=== PATIENT | female | born 1995 | race Caucasian/White ===

== ENCOUNTER 2020-01-25 17:44 | Emergency (ER) | payer OTHER, SELFPAY ==
--- NOTE | 2020-01-25 18:13 | ED.GENADULT ---
HPI - General Adult General Chief complaint: Ear Stated complaint: right ear pain Time Seen by Provider: 01/25/20 18:27 Source: patient Mode of arrival: ambulatory Limitations: no limitations History of Present Illness HPI narrative: 24-year-old female patient presents to the [facility] with complaints of right ear pain that started yesterday. Patient states she has been playing in the yard with the kids with the house a lot lately. Patient denies any fevers, runny nose, sore throat, chest pain or shortness of breath. Patient states it hurts when her ear is manipulated. Related Data Home Medications Medication Instructions Recorded Confirmed famotidine 01/25/20 sertraline mg 01/25/20 sumatriptan succinate mg PO 01/25/20 Allergies Allergy/AdvReac Type Severity Reaction Status Date / Time albuterol Allergy Mild Rash Verified 10/15/18 12:31 Review of Systems Review of Systems: Narrative: CONSTITUTIONAL: Denies fever, chills, or sweats. EYES: Denies visual changes, redness, or discharge. ENT: Denies rhinorrhea, congestion, sore throat, positive right otalgia. CARDIOVASCULAR: Denies chest pain, palpitations, or edema. RESPIRATORY: Denies cough or dyspnea. GASTROINTESTINAL: Denies abdominal pain, nausea, vomiting, or diarrhea. GENITOURINARY: Denies dysuria or hematuria. SKIN: Denies rash or itching. MUSCULOSKELETAL: Denies back pain, joint pain, or myalgia. NEUROLOGIC: Denies headache, numbness, or weakness. PSYCHIATRIC: Denies anxiety or depression. [facility] Social History Social History Smoking status: Never smoker Second hand tobacco smoke exposure: No Alcohol intake: never Comments At the time of my signature I agree with nursing past medical history, surgical, social, and family history. There is no relevant family history pertinent to the presenting complaint. Exam Narrative: Exam Narrative: GENERAL: Well-appearing, well-nourished, and in no acute distress. HEAD: Normocephalic, atraumatic. EYES: PERRLA and EOMI. ENT: Nares clear, no rhinorrhea or epistaxis. Mucous membranes moist. Patient has pain with manipulation of the right outer ear. Patient does have swelling and inflammation noted to the right ear canal. Unable to visualize the tympanic membrane due to the swelling. The left ear with no erythema and no foreign bodies to the canal. Posterior pharynx with no erythema, tonsillectomy, exudates or lesions present. NECK: Supple. No lymphadenopathy CHEST: Clear to auscultation. No respiratory distress. HEART: Regular rate and rhythm. No murmur heard. Normal peripheral pulses. ABDOMEN: Soft, nontender, nondistended, normal active bowel sounds. EXTREMITIES: Normal range of motion. No edema. SKIN: Warm, dry, no rash. NEURO: No focal deficits. Alert and oriented x3. Course Vital Signs Vital signs: Vital Signs Temperature 37.8 C H 01/25/20 18:14 Pulse Rate 86 01/25/20 18:14 Respiratory Rate 16 01/25/20 18:14 Blood Pressure 110/66 01/25/20 18:14 Pulse Oximetry 99 01/25/20 18:14 Temperature 37.8 C H 01/25/20 18:14 Pulse Rate 86 01/25/20 18:14 Respiratory Rate 16 01/25/20 18:14 Blood Pressure 110/66 01/25/20 18:14 Pulse Oximetry 99 01/25/20 18:14 Vital signs reviewed. Medical Decision Making Differential Diagnosis Differential Diagnosis: Differential diagnosis: Otitis media, otitis externa, perforated TM, infection of the outer ear, foreign body or cerumen impaction, ruptured TM, acute mastoiditis, ligament otitis externa, dehydration, pneumonia, sepsis, dental or intraoral infection, TMJ dysfunction Discussed with patient it does appear that she has an infection to her ear canal in the right ear. Discussed with her we will discharge her home with some eardrops is very important that she does not go swimming or play with the hose at this time while this is healing. Patient verbalized understanding denies any
[2020-01-25 18:14] VITALS: BP 110/66; PULSE 86; RESP 16; TEMP 37.8; O2SAT 99
== END 2020-01-25 18:48 | disposition home or self-care (01) ==
PROVIDERS: Emergency Provider Nurse Practitioner Family; PCP Emergency Medicine
DX: H60.501 Unspecified acute noninfective otitis externa, right ear (principal)
CPT/HCPCS: 99213; G0463

== ENCOUNTER 2020-01-27 06:47 | Emergency (ER) | payer OTHER, SELFPAY ==
[2020-01-27 06:55] VITALS: BP 124/88; PULSE 92; RESP 14; TEMP 36.4; O2SAT 99
--- NOTE | 2020-01-27 07:13 | ED.EAR ---
HPI - Ear Problem General Chief complaint: Ear Stated complaint: RIGHT EARACHE Time Seen by Provider: 01/27/20 07:02 Source: patient Mode of arrival: ambulatory Limitations: no limitations History of Present Illness HPI Narrative: This patient is a 24 year old female who presents for evaluation right ear infection. PAtient was diagnosed with right otitis externa 2 days ago. She was prescribed ofloxacin ear drops . She has come to ER for evaluation because she has right facial swelling and it is not resolving. She also reports she does not think the ear drops are getting into her ear. She denies fever, chills , nausea, vomiting or dizziness. MD Complaint: ear pain Related Data Home Medications Medication Instructions Recorded Confirmed famotidine 01/25/20 sertraline mg 01/25/20 sumatriptan succinate mg PO 01/25/20 Allergies Allergy/AdvReac Type Severity Reaction Status Date / Time albuterol Allergy Mild Rash Verified 01/27/20 06:48 Review of Systems Review of Systems: All systems reviewed & are unremarkable except as noted in HPI and below PMFSH Past Medical History Medical History (Updated 01/27/20 @ 07:19 by Colleen Hutton MD) GERD (gastroesophageal reflux disease) Surgical History Surgical History (Updated 01/27/20 @ 07:16 by Colleen Hutton MD) Hx of tonsillectomy Social History Social History Smoking status: Never smoker Second hand tobacco smoke exposure: No Alcohol intake: never Exam Const: General: no acute distress and alert Orientation/consciousness: patient oriented x3 HENMT: Head: normocephalic and atraumatic Ears: Abnormal EAC present edema (unable to see due to severe swelling closing canal,) on the right, external ear abnormal auricular tenderness and pain with movement of external ear and other (mild right preauricula swelling, no mastoid swelling or tenderness) Mouth: Yes lip normal Eyes: EOM: EOMs intact bilaterally Resp: Effort & Inspection: normal respiratory effort Neuro: General: patient oriented x3 and moves all extremities Psych: Mental Status: mental status grossly normal Course Reevaluation(s) Reevaluation #1: I Discussed with patient that we will add oral cipro for her otitis externa given severity . Date: 01/27/20 Time: 07:18 Vital Signs Vital signs: Vital Signs Temperature 97.6 F 01/27/20 06:55 Pulse Rate 92 01/27/20 06:55 Respiratory Rate 14 01/27/20 06:55 Blood Pressure 124/88 01/27/20 06:55 Pulse Oximetry 99 01/27/20 06:55 Temperature 97.6 F 01/27/20 06:55 Pulse Rate 92 01/27/20 06:55 Respiratory Rate 14 01/27/20 06:55 Blood Pressure 124/88 01/27/20 06:55 Pulse Oximetry 99 01/27/20 06:55 Medical Decision Making Vital Signs Vital Signs: Vital Signs Temperature 97.6 F 01/27/20 06:55 Pulse Rate 92 01/27/20 06:55 Respiratory Rate 14 01/27/20 06:55 Blood Pressure 124/88 01/27/20 06:55 Pulse Oximetry 99 01/27/20 06:55 Temperature 97.6 F 01/27/20 06:55 Pulse Rate 92 01/27/20 06:55 Respiratory Rate 14 01/27/20 06:55 Blood Pressure 124/88 01/27/20 06:55 Pulse Oximetry 99 01/27/20 06:55 Discharge Plan Discharge Clinical Impression: Otitis externa Qualifiers: Otitis externa type: unspecified type Chronicity: acute Laterality: right Qualified Code(s): H60.501 - Unspecified acute noninfective otitis externa, right ear Patient Disposition: Home, Self-Care Condition: Stable Instructions: Antibiotic Form, Ciprofloxacin (Into the middle ear), Otitis Externa (ED) Additional Instructions: Follow up with your ear nose and throat physician if symptoms do not improve. Prescriptions: New ciprofloxacin HCl [Cipro] 500 mg tablet 500 mg PO Q12H Qty: 14 RF: 0 Ciprodex 0.3-0.1 % drops,suspension 4 drop EACH EAR Q12H 7 Days RF: 0 No Action famotidine 40 mg tablet RF
[2020-01-27] MEDS: KETOROLAC (*BKC) 60 MG/2 ML VIAL IM (07:22)
[2020-01-27] MEDS: CIPROFLOXACIN 500 MG TAB PO (07:22)
== END 2020-01-27 07:47 | disposition home or self-care (01) ==
LOC: ANHED 07:42
PROVIDERS: Emergency Provider General Practice; PCP Emergency Medicine
DX: H60.501 Unspecified acute noninfective otitis externa, right ear (principal); K21.9 Gastro-esophageal reflux disease without esophagitis
CPT/HCPCS: 96372; 99283; A9270; J1885

== ENCOUNTER 2021-11-08 13:19 | Outpatient (CLI) | payer OTHER, SELFPAY ==
[2021-11-08 14:02] LABS: Hematocrit 44.6 % (37.0-47.0); Mean Corpuscular HGB Conc 31.4 g/dl (32-36); Mean Corpuscular Volume 95.7 fl (80-100); Mean Platelet Volume 9.9 fl (7.4-10.4); Platelet Count Result 235 k/mm3 (150-375); Red Blood Count 4.66 M/mm3 (4.2-5.4); Red Cell Distribution Width 13.1 % (11.5-14.5)
[2021-11-08 14:16] LABS: Alanine Aminotransferase 15 U/L (6-35); Alkaline Phosphatase 29 U/L (38-126); Anion Gap 7 mmol/L (8-16); Aspartate Amino Transferase 22 U/L (14-36); Bilirubin,Total < 0.1 mg/dL (0.2-1.3); Blood Urea Nitrogen 18 mg/dL (7-17); Calcium 8.7 mg/dL (8.4-10.2); Carbon Dioxide 26 mmol/L (22-30); Chloride 105 mmol/L (98-107); Estimated Glomerular Filt Rate > 60; Glucose 95 mg/dL (65-110); Potassium 4.4 mmol/L (3.4-5.0); Sodium 138 mmol/L (137-145)
[2021-11-08 14:33] LABS: Iron 61 ug/dL (37-170)
[2021-11-08 14:43] LABS: Percent Iron Saturation 18 % (20-50)
[2021-11-08 14:51] LABS: Free T4 Free Thyroxine 0.93 ng/mL (0.78-2.19)
== END 2021-11-08 13:20 | disposition home or self-care (01) ==
LOC: ANHLAB 13:22
PROVIDERS: PCP Nurse Practitioner; Visit Provider Nurse Practitioner
DX: R53.83 Other fatigue (principal)
CPT/HCPCS: 36415; 80053; 82607; 83540; 83550; 84439; 84443; 85027

== ENCOUNTER 2022-05-02 13:00 | Outpatient (CLI) | payer OTHER, SELFPAY | END 2022-05-02 13:01 | disposition home or self-care (01) | LOC: ANHAUDIO 13:02 | PROVIDERS: PCP Nurse Practitioner; Visit Provider Otolaryngology | DX: H69.83 Other specified disorders of Eustachian tube, bilateral (principal); H90.0 Conductive hearing loss, bilateral | CPT/HCPCS: 92557; 92567 ==

== ENCOUNTER 2022-05-11 17:53 | Emergency (ER) | payer OTHER, SELFPAY ==
[2022-05-11 18:00] VITALS: BP 130/66; PULSE 86; RESP 16; TEMP 36.8; O2SAT 100
[2022-05-11 18:34] VITALS: BP 122/67; PULSE 73
--- NOTE | 2022-05-11 18:34 | ED.NAVMDI ---
HPI - Nausea/Vomiting/Diarrhea General Chief complaint: Nausea/Vomiting/Diarrhea Stated complaint: 5weeks , n/v Time Seen by Provider: 05/11/22 18:06 History of Present Illness HPI Narrative: 27-year-old female who is a currently 5 weeks presents to the emergency room for evaluation of nausea vomiting for 5 days. Patient's PIPE CAULKER is Dr. Sprague, and was told to come here for hydration. Patient denies any abdominal pain, back pain, fevers, diarrhea or constipation. Patient denies any vaginal bleeding. Patient states that she takes Pepcid regularly. Patient states her PIPE CAULKER called in a prescription for Reglan. Related Data Home Medications Medication Instructions Recorded Confirmed famotidine 40 mg tablet 01/25/20 03/13/22 Allergies Allergy/AdvReac Type Severity Reaction Status Date / Time albuterol Allergy Mild Rash Verified 03/13/22 14:27 Review of Systems Review of Systems: CONSTITUTIONAL: Denies fever, chills, or sweats. EYES: Denies visual changes, redness, or discharge. ENT: Denies rhinorrhea, congestion, sore throat, or otalgia. CARDIOVASCULAR: Denies chest pain, palpitations, or edema. RESPIRATORY: Denies cough or dyspnea. GASTROINTESTINAL: Reports nausea and vomiting GENITOURINARY: Denies dysuria or hematuria. SKIN: Denies rash or itching. MUSCULOSKELETAL: Denies back pain, joint pain, or myalgia. NEUROLOGIC: Denies headache, numbness, dizziness, or weakness. PSYCHIATRIC: Denies anxiety or depression. [facility] Past Medical History Medical History Acute suppurative otitis media of right ear with spontaneous rupture of tympanic membrane Crepitus of joint of left knee Depression with anxiety Encounter for screening examination for infectious disease Generalized anxiety disorder GERD (gastroesophageal reflux disease) Hearing loss, right Irregular menses Major depressive disorder, single episode, unspecified Nummular eczema Surgical History Surgical History History of myringotomy Hx of tonsillectomy Social History Social History Smoking status: Never smoker Second hand tobacco smoke exposure: Yes Alcohol intake: never Substance use: current Substance use type: marijuana Additional occupation/education comments: stay at home mother Gender identity (if verbalized by the patient): Female Exam Narrative: GENERAL: Well-appearing, well-nourished, no physical limitations, and in no acute distress. HEAD: Normocephalic, atraumatic. EYES: Conjunctivae normal, PERRLA and EOMI. ENT: External nose normal, Nares clear, no rhinorrhea or epistaxis. Mucous membranes dry. CHEST: Clear to auscultation. No respiratory distress. No wheezes rales or rhonchi. HEART: Regular rate and rhythm. No murmur heard. Normal peripheral pulses. ABDOMEN: Soft, nontender, nondistended, normal active bowel sounds. EXTREMITIES: Normal range of motion. No edema. No clubbing or cyanosis SKIN: Warm, dry, no rash. No noted wounds NEURO: No focal deficits. Alert and oriented x3. MAEW. CN's II-XI intact bilaterally, normal gait PSYCH: Cooperative. Normal mood and affect. Course Vital Signs Vital signs: Vital Signs Temperature 36.8 C 05/11/22 18:00 Pulse Rate 86 05/11/22 18:00 Respiratory Rate 16 05/11/22 18:00 Blood Pressure 130/66 05/11/22 18:00 Pulse Oximetry 100 05/11/22 18:00 Oxygen Delivery Room Air 05/11/22 18:00 Temperature 36.8 C 05/11/22 18:00 Pulse Rate 82 05/11/22 18:35 Respiratory Rate 16 05/11/22 18:00 Blood Pressure 124/86 05/11/22 18:35 Pulse Oximetry 100 05/11/22 18:00 Oxygen Delivery Room Air 05/11/22 18:00 MDM - Nausea/Vomiting/Diarrhea Lab Data Result diagrams: 05/11/22 18:47 05/11/22 18:47 Labs: Lab Results 05/11/22 05/11/22 1
[2022-05-11 18:35] VITALS: BP 116/87; BP 124/86; PULSE 67; PULSE 82
[2022-05-11] MEDS: ONDANSETRON INJ 4 MG/2 ML VIAL IV PUSH (18:35)
[2022-05-11] MEDS: SODIUM CHLORIDE 0.9% IV 1,000 ML 999 ML IV CONT (18:35)
[2022-05-11 18:57] LABS: Basophils Percent Auto 0.3 % (0.2-1.2); Eosinophils Percent Auto 0.2 % (0-4.4); Hematocrit 44.1 % (37.0-47.0); Immature Granulocyte Absolute 0.07 K/mm3 (0.00-0.031); Immature Granulocyte Percent A 0.5 % (0-0.5); Lymphocytes Absolute Auto 1.89 K/mm3 (0.9-3.2); Lymphocytes Percent Auto 13.1 % (18.3-44.2); Mean Corpuscular Hemoglobin 30.6 pg (26-34); Mean Platelet Volume 9.7 fl (7.4-10.4); Monocytes Absolute Auto 0.4 K/mm3 (0.1-0.6); Neutrophils Percent Auto 82.9 % (45.5-73.1); Platelet Count Result 290 k/mm3 (150-375); Red Cell Distribution Width 12.2 % (11.5-14.5); White Blood Count 14.5 K/mm3 (4.5-10.0)
[2022-05-11 19:03] LABS: Appearance Urine Clear (Clear); Bilirubin Urine 2+ (Negative); Blood Urine Trace-intact (Negative); Color Urine Yellow (Yellow); Glucose Urine UA Negative (Negative); Ketones Urine 4+ mg/dL (Negative); Leukocyte Esterase Ur 1+ LEU/UL (Negative); Nitrate Urine Negative (Negative); Protein Urine 2+ mg/dL (Negative); pH Urine 8.5 (5.0-9.0)
[2022-05-11 19:05] LABS: Alanine Aminotransferase 23 U/L (6-35); Albumin Level 5.2 g/dL (3.5-5.1); Alkaline Phosphatase 40 U/L (38-126); Anion Gap 14 mmol/L (8-16); Aspartate Amino Transferase 26 U/L (14-36); Bilirubin,Total 0.8 mg/dL (0.2-1.3); Blood Urea Nitrogen 13 mg/dL (7-17); Calcium 10.1 mg/dL (8.4-10.2); Carbon Dioxide 22 mmol/L (22-30); Chloride 104 mmol/L (98-107); Estimated CRCL calculation 144 ml/min; Estimated Glomerular Filt Rate > 60; Glucose 112 mg/dL (65-110); Lipase 47 U/L (23-300); Potassium 3.3 mmol/L (3.4-5.0); Sodium 140 mmol/L (137-145)
[2022-05-11 19:13] LABS: Mucus Urine Heavy /lpf; Squamous Epithelial Cell Urine Many /hpf (Few)
[2022-05-11 19:15] LABS: Add Urine Microscopic? YES
[2022-05-11 20:08] VITALS: BP 132/83; PULSE 76; RESP 16; O2SAT 100
== END 2022-05-11 19:58 | disposition home or self-care (01) ==
PROVIDERS: Emergency Medicine; Emergency Provider Nurse Practitioner Family; PCP Advanced Practice Midwife
DX: O26.891 Other specified pregnancy related conditions, first trimester (principal); E86.0 Dehydration; O21.8 Other vomiting complicating pregnancy; Z3A.01 Less than 8 weeks gestation of pregnancy
CPT/HCPCS: 36415; 80053; 81001; 83690; 85025; 96361; 96374; 99284; J2405; J7030

== ENCOUNTER 2022-05-13 12:33 | Emergency (ER) | payer OTHER, SELFPAY ==
[2022-05-13 13:29] VITALS: BP 146/87; PULSE 86; RESP 14; TEMP 36.6; O2SAT 100
== END 2022-05-13 14:55 | disposition left against medical advice (07) ==
PROVIDERS: Emergency Provider Emergency Medicine; PCP Advanced Practice Midwife
DX: R11.2 Nausea with vomiting, unspecified (principal)
CPT/HCPCS: 99199

== ENCOUNTER 2022-11-10 11:40 | Emergency (ER) | payer OTHER, SELFPAY ==
[2022-11-10 11:41] VITALS: BP 123/77; PULSE 87; RESP 16; TEMP 36.4; O2SAT 100
[2022-11-10] MEDS: SODIUM CHLORIDE 0.9% IV 1,000 ML 999 ML IV CONT ×2 (12:10→13:25)
[2022-11-10] MEDS: ONDANSETRON INJ 4 MG/2 ML VIAL IV PUSH (12:10)
--- NOTE | 2022-11-10 12:17 | PC.NURSE ---
Pt did try to urinate, said not able to urinate at this time.
[2022-11-10 12:18] LABS: Basophils Absolute Auto 0.1 K/mm3 (0.0-0.1); Basophils Percent Auto 0.5 % (0.2-1.2); Eosinophils Absolute Auto 0.1 K/mm3 (0-0.3); Eosinophils Percent Auto 0.5 % (0-4.4); Hematocrit 42.9 % (37.0-47.0); Hemoglobin 14.6 g/dL (12.0-15.0); Immature Granulocyte Absolute 0.05 K/mm3 (0.00-0.031); Immature Granulocyte Percent A 0.4 % (0-0.5); Lymphocytes Absolute Auto 2.88 K/mm3 (0.9-3.2); Lymphocytes Percent Auto 21.6 % (18.3-44.2); Mean Corpuscular Volume 88.1 fl (80-100); Mean Platelet Volume 9.9 fl (7.4-10.4); Monocytes Absolute Auto 0.7 K/mm3 (0.1-0.6); Monocytes Percent Auto 5.4 % (2.6-8.5); Neutrophils Absolute Auto 9.5 K/mm3 (1.3-6.7); Neutrophils Percent Auto 71.6 % (45.5-73.1); Platelet Count Result 275 k/mm3 (150-375); Red Blood Count 4.87 M/mm3 (4.2-5.4); Red Cell Distribution Width 13.1 % (11.5-14.5); White Blood Count 13.3 K/mm3 (4.5-10.0)
--- NOTE | 2022-11-10 12:26 | ED.GENADULT ---
HPI - General Adult General Chief complaint: Nausea/Vomiting/Diarrhea Stated complaint: n/v during - 8 weeks Time Seen by Provider: 11/10/22 11:56 History of Present Illness HPI narrative: 27-year-old female that is approximately 8 weeks presenting to the emergency department for evaluation for persistent nausea and vomiting. Patient did have an outpatient ultrasound on and follows up with Gita Sprague. Patient states that after her appointment she has had worsening nausea and vomiting. Patient states she was taking some Unisom and B6 but states this is no longer helping. Patient denies any current chest pain shortness of breath. Patient denies any lower abdominal pain or vaginal bleeding or discharge. Patient states she has had some burning with urination this morning but she suspects that was mainly due to how concentrated her urine was. Upon arrival to the emergency department patient is with family and patient does have an emesis basin with her. Patient is otherwise resting comfortably. Patient reports that she did have history of hyperemesis gravidarum with her prior pregnancies. Related Data Home Medications Medication Instructions Recorded Confirmed famotidine 40 mg tablet 01/25/20 06/21/22 Allergies Allergy/AdvReac Type Severity Reaction Status Date / Time albuterol Allergy Mild Rash Verified 11/10/22 11:41 Review of Systems Review of Systems: All systems reviewed & are unremarkable except as noted in HPI and below PMFSH Past Medical History Medical History Acute suppurative otitis media of right ear with spontaneous rupture of tympanic membrane Crepitus of joint of left knee Depression with anxiety Encounter for screening examination for infectious disease Generalized anxiety disorder GERD (gastroesophageal reflux disease) Hearing loss, right Irregular menses Major depressive disorder, single episode, unspecified Nummular eczema Surgical History Surgical History History of myringotomy Hx of tonsillectomy Social History Social History (Updated 06/21/22 @ 15:35 by EKTA Thomas) Smoking status: Never smoker Second hand tobacco smoke exposure: Yes Alcohol intake: never Substance use: current Substance use type: marijuana Lack of Transportation: No Lack of Food: Never True Current Housing: I Have Housing Concerned About Future Housing: No Difficulty Paying Gas/Electric Bills: No Difficulty Paying for Meds: No Currently Unemployed: No Education: Trade/Vocational Certificate Difficulty w/ Childcare or Family Care: No Living arrangements: with family Additional occupation/education comments: stay at home mother Gender identity (if verbalized by the patient): Female Exam Narrative: APPEARANCE: Well appearing, no pain, no distress, well-nourished. HEAD: normocephalic, atraumatic. EYES: PERRLA/EOMI, conjunctivae clear. NOSE: Normal no drainage EARS:TMS clear with good light reflex. THROAT: Pharynx clear, no exudate. NECK: Supple. No adenopathy, no masses. RESPIRATORY: Airway patent, respirations nonlabored. Clear to auscultation bilaterally, no rales, rhonchi, wheezing. CARDIOVASCULAR: Regular rate and rhythm without murmurs rubs or gallops. ABDOMINAL: Soft, nontender, nondistended, normal bowel sounds MUSCULOSKELETAL: Moves all extremities. Strength/ROM intact, No edema, No calf tenderness. NEURO: Alert. Cranial nerves II through XII intact. Grossly intact SKIN: Warm, dry. Normal Color Course Course Emergency Course: 27-year-old female that is 8 weeks presenting to the ED for evaluation of nausea vomiting. Patient was treated with IV fluids and IV Zofran. Patient does have a work-up pending including baseline labs and a urinary analysis. Patient had an outpatient ultrasound showing an IUP and patient guardado
[2022-11-10 12:29] LABS: Alanine Aminotransferase 26 U/L (6-35); Albumin Level 4.4 g/dL (3.5-5.1); Alkaline Phosphatase 31 U/L (38-126); Anion Gap 9 mmol/L (8-16); Aspartate Amino Transferase 26 U/L (14-36); Bilirubin,Total 0.7 mg/dL (0.2-1.3); Blood Urea Nitrogen 10 mg/dL (7-17); Calcium 9.2 mg/dL (8.4-10.2); Carbon Dioxide 27 mmol/L (22-30); Chloride 100 mmol/L (98-107); Estimated CRCL calculation 143 ml/min; Estimated Glomerular Filt Rate > 60; Glucose 122 mg/dL (65-110); Potassium 3.2 mmol/L (3.4-5.0); Sodium 136 mmol/L (137-145)
[2022-11-10 13:27] VITALS: BP 114/74; PULSE 84; RESP 18; O2SAT 98
[2022-11-10 13:34] LABS: Amorphous Sediment Urine Present; Appearance Urine Turbid (Clear); Bacteria Urine 4+ /hpf; Bilirubin Urine 1+ (Negative); Blood Urine Negative (Negative); Color Urine Dark Yellow (Yellow); Glucose Urine UA Negative (Negative); Ketones Urine 1+ mg/dL (Negative); Leukocyte Esterase Ur 3+ LEU/UL (Negative); Nitrate Urine Negative (Negative); Protein Urine 1+ mg/dL (Negative); Specific Grav Ur 1.029 (1.001-1.035); Squamous Epithelial Cell Urine Many /hpf (Few); WBC Urine 51-100 /hpf
[2022-11-10 13:41] LABS: Add Urine Microscopic? YES
[2022-11-10 14:53] VITALS: BP 126/74; PULSE 88; RESP 16; TEMP 36.7; O2SAT 98
== END 2022-11-10 14:55 | disposition home or self-care (01) ==
PROVIDERS: Emergency Provider Emergency Medicine
DX: O23.40 Unspecified infection of urinary tract in pregnancy, unspecified trimester (principal); O21.9 Vomiting of pregnancy, unspecified; O99.611 Diseases of the digestive system complicating pregnancy, first trimester; K21.9 Gastro-esophageal reflux disease without esophagitis; Z3A.08 8 weeks gestation of pregnancy
CPT/HCPCS: 36415; 80053; 81001; 85025; 87086; 87088; 96361; 96365; 96375; 99284; J0696; J2405; J7030

== ENCOUNTER 2022-12-28 12:31 | Outpatient (CLI) | payer OTHER, SELFPAY ==
[2022-12-28 14:05] LABS: Basophils Percent Auto 0.4 % (0.2-1.2); Eosinophils Absolute Auto 0.4 K/mm3 (0-0.3); Eosinophils Percent Auto 4.1 % (0-4.4); Hematocrit 37.3 % (37.0-47.0); Hemoglobin 12.1 g/dL (12.0-15.0); Immature Granulocyte Absolute 0.14 K/mm3 (0.00-0.031); Immature Granulocyte Percent A 1.4 % (0-0.5); Lymphocytes Absolute Auto 2.22 K/mm3 (0.9-3.2); Mean Corpuscular HGB Conc 32.4 g/dl (32-36); Mean Corpuscular Volume 92.3 fl (80-100); Mean Platelet Volume 9.5 fl (7.4-10.4); Monocytes Absolute Auto 0.4 K/mm3 (0.1-0.6); Monocytes Percent Auto 4.2 % (2.6-8.5); Neutrophils Absolute Auto 6.9 K/mm3 (1.3-6.7); Neutrophils Percent Auto 67.9 % (45.5-73.1); Platelet Count Result 200 k/mm3 (150-375); Red Blood Count 4.04 M/mm3 (4.2-5.4); Red Cell Distribution Width 13.2 % (11.5-14.5); White Blood Count 10.1 K/mm3 (4.5-10.0)
[2022-12-28 14:11] LABS: Glucose 1 Hour PP 50gm Dose 121 mg/dL
[2022-12-28 14:54] LABS: HIV 1/2 Ab P24 Ag Result Negative (Negative)
[2022-12-28 16:39] LABS: Rapid Plasma Reagin Non-Reactive (NonReactive)
[2022-12-28 17:04] LABS: Hepatitis B Surface Antigen Negative (Negative); Rubella IgG Antibody 56.9 IU/ML
== END 2022-12-28 12:32 | disposition home or self-care (01) ==
PROVIDERS: Visit Provider Obstetrics & Gynecology
DX: N94.89 Other specified conditions associated with female genital organs and menstrual cycle (principal)
CPT/HCPCS: 36415; 82947; 84702; 85025; 86592; 86644; 86703; 86747; 86762; 86787; 86850; 86900; 86901; 87340; G0432

== ENCOUNTER 2023-04-15 14:14 | Outpatient (CLI) | payer OTHER, SELFPAY ==
[2023-04-15 15:38] LABS: Basophils Percent Auto 0.4 % (0.2-1.2); Eosinophils Absolute Auto 0.3 K/mm3 (0-0.3); Eosinophils Percent Auto 3.4 % (0-4.4); Hematocrit 36.4 % (37.0-47.0); Hemoglobin 11.3 g/dL (12.0-15.0); Immature Granulocyte Absolute 0.11 K/mm3 (0.00-0.031); Immature Granulocyte Percent A 1.2 % (0-0.5); Lymphocytes Absolute Auto 1.99 K/mm3 (0.9-3.2); Lymphocytes Percent Auto 21.9 % (18.3-44.2); Mean Corpuscular Volume 90.1 fl (80-100); Monocytes Absolute Auto 0.4 K/mm3 (0.1-0.6); Monocytes Percent Auto 4.2 % (2.6-8.5); Neutrophils Absolute Auto 6.3 K/mm3 (1.3-6.7); Neutrophils Percent Auto 68.9 % (45.5-73.1); Platelet Count Result 207 k/mm3 (150-375); Red Blood Count 4.04 M/mm3 (4.2-5.4); Red Cell Distribution Width 12.4 % (11.5-14.5); White Blood Count 9.1 K/mm3 (4.5-10.0)
[2023-04-15 15:55] LABS: Glucose 1 Hour PP 50gm Dose 133 mg/dL
[2023-04-15 16:37] LABS: HIV 1/2 Ab P24 Ag Result Negative (Negative)
== END 2023-04-15 14:15 | disposition home or self-care (01) ==
LOC: ANHLAB 14:15
PROVIDERS: Visit Provider Obstetrics & Gynecology
DX: Z34.90 Encounter for supervision of normal pregnancy, unspecified, unspecified trimester (principal); Z3A.00 Weeks of gestation of pregnancy not specified
CPT/HCPCS: 36415; 82947; 85025; 86703; G0432

== ENCOUNTER 2023-06-22 05:48 | Inpatient (IN) | payer OTHER, SELFPAY ==
[2023-06-22] VITALS (144 sets, daily range): BP systolic 100–155; BP diastolic 43–96; PULSE 70–172; RESP 16–18; TEMP 36.4–37.6; O2SAT 86–100; BMI 41.4
[2023-06-22 06:21] LABS: Basophils Percent Auto 0.3 % (0.2-1.2); Eosinophils Absolute Auto 0.2 K/mm3 (0-0.3); Eosinophils Percent Auto 1.7 % (0-4.4); Hemoglobin 10.9 g/dL (12.0-15.0); Immature Granulocyte Absolute 0.15 K/mm3 (0.00-0.031); Immature Granulocyte Percent A 1.2 % (0-0.5); Lymphocytes Absolute Auto 2.38 K/mm3 (0.9-3.2); Lymphocytes Percent Auto 18.7 % (18.3-44.2); Mean Corpuscular HGB Conc 30.3 g/dl (32-36); Mean Corpuscular Hemoglobin 26.4 pg (26-34); Mean Corpuscular Volume 87.2 fl (80-100); Mean Platelet Volume 10.4 fl (7.4-10.4); Monocytes Absolute Auto 0.9 K/mm3 (0.1-0.6); Neutrophils Absolute Auto 9.1 K/mm3 (1.3-6.7); Neutrophils Percent Auto 71.1 % (45.5-73.1); Platelet Count Result 234 k/mm3 (150-375); Red Blood Count 4.13 M/mm3 (4.2-5.4); Red Cell Distribution Width 15.3 % (11.5-14.5); White Blood Count 12.7 K/mm3 (4.5-10.0)
[2023-06-22] MEDS: LACTATED RINGERS 1,000 ML 125 ML IV CONT ×2 (06:21→07:17)
--- NOTE | 2023-06-22 06:26 | LDADM ---
This patient, Kasey Salinas, was admitted to Labor/Delivery/Recovery 106 on 06/22/23 at 05:48. Plans for labor, pain management and were discussed with patient. Patient/family oriented to hospital policies and general routines including ID bracelet, bed and alarms, visiting hours, pain management, procedures, bathroom and other care routines, personal items, smoking policy, room service/diet and guest tray routines, infant security routines, and visiting hours. Patient/Family are encouraged to report perceived risks to care and to ask questions if they do not understand what they are told or what they should do. See OBIX for further documentation.
--- NOTE | 2023-06-22 06:51 | PM.IMHP ---
H&P: HPI History of Present Illness Date/Time: 06/22/23 06:51 Chief Complaint: contractions Narrative: Kasey is a 28yo @ 41.0wks who presented to L&D with strong and frequent contractions; found to be 6cm on admission. She reports good movement. No VB or LOF. She would like an epidural. Has had regular care. Her is complicated by: - Obesity - Mild anemia - H/o depression Review of Systems Constitutional: Constitutional: Denies chills, Denies fever(s) and Denies headache(s) Eyes: Eyes: Denies change in vision ENT: Denies headache(s) Cardiovascular: Cardiovascular: Denies chest pain and Denies dyspnea Respiratory: Respiratory: Denies dyspnea Genitourinary: Genitourinary: Denies abnormal vaginal bleeding and Denies vaginal discharge Neurologic: Denies headache(s) Psychiatric: Psychiatric: Denies anxiety and Denies depression [facility] Past Medical History Medical History Acute suppurative otitis media of right ear with spontaneous rupture of tympanic membrane Crepitus of joint of left knee Depression with anxiety Encounter for screening examination for infectious disease Generalized anxiety disorder GERD (gastroesophageal reflux disease) Hearing loss, right Irregular menses Major depressive disorder, single episode, unspecified Nummular eczema Self-cutting of wrist Suppression of menstruation Surgical History Surgical History History of myringotomy Hx of tonsillectomy Family History Family History Mother Acute myocardial infarction Grandparent Breast cancer in female Social History Social History Smoking status: Never smoker Second hand tobacco smoke exposure: Yes Alcohol intake: never Substance use: former Substance use type: marijuana Last use: 10/22/2022 Do You Feel Safe in your Home?: Yes Lack of Transportation: No Lack of Food: Never True Current Housing: I Have Housing Concerned About Future Housing: No Difficulty Paying Gas/Electric Bills: No Difficulty Paying for Meds: No Currently Unemployed: No Education: Trade/Vocational Certificate Difficulty w/ Childcare or Family Care: No Living arrangements: with family Additional living arrangements comments: partner and parents Occupation/Education: other Additional occupation/education comments: stay at home mother Gender identity (if verbalized by the patient): Female Sexual Orientation (if Verbalized by the Patient): Straight or Heterosexual Spiritual care concerns: No Meds Home Medications and Allergies Home Medications Medication Instructions Recorded Confirmed Type famotidine 40 mg tablet 40 mg PO DAILY 01/25/20 06/22/23 History ferrous sulfate 325 mg (65 mg 325 mg PO DAILY 04/23/23 06/22/23 History iron) tablet ondansetron 4 mg disintegrating 4 mg PO Q8H PRN nausea and 05/07/23 06/22/23 Rx tablet vomiting #14 tabs Allergies Allergy/AdvReac Type Severity Reaction Status Date / Time albuterol Allergy Mild Rash Verified 06/22/23 06:19 Vital Signs Vital Signs - 24 hr 06/22/23 06:06 06/22/23 06:16 06/22/23 06:26 Pulse Rate 83 74 Blood Pressure 135/81 140/87 Pulse Oximetry 99 Oxygen Delivery 06/22/23 06:27 06/22/23 06:31 06/22/23 06:32 Pulse Rate 86 Blood Pressure 140/85 Pulse Oximetry 96 96 Oxygen Delivery 06/22/23 06:37 06/22/23 06:38 06/22/23 06:40 Pulse Rate 87 Blood Pressure 141/71 H Pulse Oximetry 97 87 L Oxygen Delivery 06/22/23 06:43 06/22/23 06:45 06/22/23 06:46 Pulse Rate 106 H 104 H Blood Pressure 152/68 H 133/96 H Pulse Oximetry 100 Oxygen Delivery 06/22/23 06:49 06/22/23 06:50 06/22/23 06:22 Pulse Rate 95 Blood Pressure 145/80 H Pulse Oximetry
--- NOTE | 2023-06-22 07:07 | WPDANESEPP ---
Anes - Eval Pre Procedure Procedure: Labor Epidural Date/Time: 06/22/23 07:07 Surgeon: Tadeo Preop Diagnosis: Labor Pain Pre Op Diagnosis: CTX Patient Data Age: 28 Gender: F Height: 1.7 m Weight: 120 kg Last Vital Signs Pulse 89 06/22/23 07:04 BP 152/71 H 06/22/23 07:04 Pulse Ox 100 06/22/23 07:03 O2 Del Method Room Air 06/22/23 06:22 Allergies Allergy/AdvReac Type Severity Reaction Status Date / Time albuterol Allergy Mild Rash Verified 06/22/23 06:19 Home Medications Medication Instructions Recorded Confirmed Type famotidine 40 mg tablet 40 mg PO DAILY 01/25/20 06/22/23 History ferrous sulfate 325 mg (65 mg 325 mg PO DAILY 04/23/23 06/22/23 History iron) tablet ondansetron 4 mg disintegrating 4 mg PO Q8H PRN nausea and 05/07/23 06/22/23 Rx tablet vomiting #14 tabs Laboratory Tests 06/22/23 06:13 WBC 12.7 H K/mm3 (4.5-10.0) RBC 4.13 L M/mm3 (4.2-5.4) Hgb 10.9 L g/dL (12.0-15.0) Hct 36.0 L % (37.0-47.0) MCV 87.2 fl (80-100) MCH 26.4 pg (26-34) MCHC 30.3 L g/dl (32-36) RDW 15.3 H % (11.5-14.5) Plt Count 234 k/mm3 (150-375) MPV 10.4 fl (7.4-10.4) Immature Gran % (Auto) 1.2 H % (0-0.5) Neut % (Auto) 71.1 % (45.5-73.1) Lymph % (Auto) 18.7 % (18.3-44.2) Jerome % (Auto) 7.0 % (2.6-8.5) Eos % (Auto) 1.7 % (0-4.4) Baso % (Auto) 0.3 % (0.2-1.2) Lymph # (Auto) 2.38 K/mm3 (0.9-3.2) Jerome # (Auto) 0.9 H K/mm3 (0.1-0.6) Eos # (Auto) 0.2 K/mm3 (0-0.3) Baso # (Auto) 0.0 K/mm3 (0.0-0.1) Abs Immat Gran (auto) 0.15 H K/mm3 (0.00-0.031) Absolute Neuts (auto) 9.1 H K/mm3 (1.3-6.7) Absolute Nucleated RBC 0.0 K/mm3 (0.0-0.012) Nucleated RBC % 0.0 % (0.0-0.2) RPR Pending : gestational age (FABBY 06/18/23, ) Patient hx anesthesia problems: none Family hx anesthesia problems: none Results Review: All pre-operative results and documents have been reviewed as part of the pre-operative evaluation. [facility] Past Medical History Medical History Acute suppurative otitis media of right ear with spontaneous rupture of tympanic membrane Crepitus of joint of left knee Depression with anxiety Encounter for screening examination for infectious disease Generalized anxiety disorder GERD (gastroesophageal reflux disease) Hearing loss, right Irregular menses Major depressive disorder, single episode, unspecified Nummular eczema Self-cutting of wrist Suppression of menstruation Surgical History Surgical History History of myringotomy Hx of tonsillectomy Family History Family History Mother Acute myocardial infarction Grandparent Breast cancer in female Social History Social History Smoking status: Never smoker Second hand tobacco smoke exposure: Yes Alcohol intake: never Substance use: former Substance use type: marijuana Last use: 10/22/2022 Do You Feel Safe in your Home?: Yes Lack of Transportation: No Lack of Food: Never True Current Housing: I Have Housing Concerned About Future Housing: No Difficulty Paying Gas/Electric Bills: No Difficulty Paying for Meds: No Currently Unemployed: No Education: Trade/Vocational Certificate Difficulty w/ Childcare or Family Care: No Living arrangements: with family Additional living arrangements comments: partner and parents Occupation/Education: other Additional occupation/education comments: stay at home mother Gender identity (if verbalized by the patient): Female Sexual Orientation (if Verbalized by the Patient): Straight or Heterosexual Spiritual care concerns: No Exam Day of Procedure 06/22/23 07:07 Patient weight: obese
--- NOTE | 2023-06-22 08:00 | WPDHPUPDATE1 ---
History and Physical Update Update Date/Time: 06/22/23 08:00 History and Physical has been reviewed, including an updated exam of the patient. There are NO changes in the patient's condition. Risks, benefits, and alternatives have been discussed and questions answered. Patient agrees to proceed with procedure.
[2023-06-22] MEDS: OXYTOCIN 30 UNITS/NS 500 ML 30 UNITS/500 ML BAG 999 UNITS IV CONT (11:06)
--- NOTE | 2023-06-22 11:15 | PM.OBPRVD ---
OB - Vaginal Delivery Note Procedure Delivery date: 06/22/23 Delivery augmentation: Rupture of Membranes and Pitocin Delivery monitor: External FHT and External Uterine Route of delivery: Episiotomy description: None Laceration Description: None Quantitative Blood Loss (ml): 250 Anesthesia type: Epidural Disposition: Floor Complications: No immediate complications Baby Date of : 06/22/23 Time of : 11:02 Weeks of gestation at delivery: 41 (.0) Infant gender: Male presentation: vertex position: Left Occiput Posterior Placenta delivery description: Expressed Cord Vessel Description: 3 Vessels and Delayed Cord Clamping score one minute: 9 score five minutes: 9 Narrative: Kasey progressed to complete dilation and began pushing. Her contractions felt weak and the head was not progressing, therefore Pitocin augmentation was started. He did feel a LOP, and she pushed for approximately 1.5 hours with good maternal effort. She delivered the head over intact perineum. She easily delivered the infant's shoulders and body without complication. He was immediately placed skin to skin. The pediatric team was present and bulb suctioned his mouth and nose and cry was then heard. Delayed cord clamping was performed. The umbilical cord was then doubly clamped and cut. Segment of the cord was collected for cord gases. The remaining cord blood was collected for typing. With Pitocin running and gentle downward traction on the cord, the placenta delivered without complications. Bimanual massage was performed and good uterine tone with minimal bleeding was noted. She was examined and no lacerations were identified. Good uterine tone with minimal bleeding remained. Sponge, lap, instrument, needle counts were correct at the end of the procedure. Mom and baby were left bonding in the birthing suite in stable condition. [facility] Delivery Billing Delivery Delivery: Delivery Charge
[2023-06-22] MEDS: OXYTOCIN 30 UNITS/NS 500 ML 30 UNITS/500 ML BAG 125 UNITS IV CONT (11:29)
[2023-06-22] MEDS: WITCH HAZEL 40 PADS 1 PAD TOPICAL (13:19)
[2023-06-22] MEDS: BENZOCAINE 20% AER SPR (*SP) 56 GM CAN 1 SPRAY TOPICAL (13:19)
--- NOTE | 2023-06-22 14:41 | OBPPTRN ---
0911 Patient transferred to post room #285 via W/C. Support person present. Oriented to unit, room, information board, rooming in, admission packet and security measures. Patient verbalizes understanding.
[2023-06-22] MEDS: IBUPROFEN 600 MG TABLET PO (17:28)
[2023-06-22] MEDS: DOCUSATE SODIUM 100 MG CAPSULE PO (17:28)
[2023-06-23] MEDS: FAMOTIDINE 20 MG TABLET 40 MG PO (03:04)
[2023-06-23 03:15] VITALS: BP 129/84; PULSE 84; RESP 16; O2SAT 98
[2023-06-23 05:04] LABS: Hematocrit 34.5 % (37.0-47.0); Hemoglobin 10.5 g/dL (12.0-15.0)
--- NOTE | 2023-06-23 06:29 | P.PNOB_ITS ---
OB - PN: Subj Subjective Date/time seen: 06/23/23 06:29 Narrative: PPD#1 Kasey reports doing well today. 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 Her pain is controlled. She is tolerating regular diet, passing gas, and ambulating without issues. She is breast feeding. She had urinary retention after her epidural; jack was replaced with 1400cc of urine out last night. OB - PN: Obj Data Labs 06/23/23 04:53 Labs: Laboratory Results - last 24 hr 06/22/23 06/23/23 06:13 04:53 Hgb 10.5 L Hct 34.5 L Blood Type A Positive Antibody Screen Negative OB - PN A/P Assessment and Plan (1) Normal vaginal delivery: Code(s): O80 - Encounter for full-term uncomplicated delivery Status: Acute (2) Acute urinary retention: Code(s): R33.8 - Other retention of urine Status: Acute Plan day: 1 Plan: routine care Comments: - Jack removed this morning at 0745; encouraged to PO hydrate and try to get up and void in a couple hours-- if no void by 6 hours, plan for bladder scan and replacement of jack if large volume noted and will need for >24 hrs - PO hydration/ambulation encouraged - continue breast feeding - She does not desire her son to be circumcised Time Spent With Patient Time: Total time spent is greater than 50% in coordination of care (as documented) at patient's floor/unit and/or counseling patient: Review of Systems Constitutional: Constitutional: Denies chills, Denies fever(s) and Denies headache(s) Eyes: Eyes: Denies change in vision ENT: Denies dizziness and Denies headache(s) Cardiovascular: Cardiovascular: Denies chest pain, Denies palpitations and Denies dyspnea Respiratory: Respiratory: Denies cough and Denies dyspnea Gastrointestinal: Gastrointestinal: Denies nausea and Denies vomiting Neurologic: Denies dizziness and Denies headache(s) Endocrine: Endocrine: Denies palpitations Exam Const: General: cooperative, comfortable, no acute distress and obese Orientation/consciousness: patient oriented x3 Resp: Effort & Inspection: normal respiratory effort Auscultation: clear to auscultation bilaterally Cardio: Rate: regular rate GI: Inspection: non-distended GI Palp: No abdominal tenderness and Yes Soft to palpation Auscultation: normal bowel sounds : Other: fundus firm Urinary Catheter: Urinary Catheter: patent and draining, urine clear and other (Jack removed @ 0745) Skin: General skin exam: normal color Neuro: General: patient oriented x3 Extrem: General: normal to inspection Psych: Appearance: grossly normal Affect: normal affect Attitude: cooperative
--- NOTE | 2023-06-23 06:50 | PM.OBDSVD ---
DS: Admitting Diagnosis Discharge Date 06/24/23 Admitting Diagnosis Active Labor DS: Discharge Diagnosis Discharge Diagnosis (1) Normal vaginal delivery: Code(s): O80 - Encounter for full-term uncomplicated delivery Status: Acute OB - DS: Summary OB Procedures : Ultrasound OB Procedures Intrapartum: Spontaneous Vag Delivery OB Procedures: : None Peripartum Data Delivery Method: Natural Vaginal Laceration Description: None Episiotomy description: None complications: none 1: Gender: Male Disposition of : home Status at Discharge Functional status at discharge: independent ambulation Overall status at discharge: patient is back to baseline Time Spent with Patient Time attestation: Total time spent providing and/or coordinating discharge services: Time spent: Less than 30 minutes Exam Const: General: cooperative, comfortable, no acute distress and obese Orientation/consciousness: patient oriented x3 Resp: Effort & Inspection: normal respiratory effort Auscultation: clear to auscultation bilaterally Cardio: Rate: regular rate GI: Inspection: non-distended GI Palp: No abdominal tenderness and Yes Soft to palpation Auscultation: normal bowel sounds : Other: fundus firm Skin: General skin exam: normal color Neuro: General: patient oriented x3 Extrem: General: normal to inspection Psych: Appearance: grossly normal Affect: normal affect Attitude: cooperative DS: Data Data Completed and Pending Labs on day of discharge: Labs from last 24 hours 06/23/23 06/22/23 04:53 06:13 Hgb 10.5 L Hct 34.5 L Blood Type A Positive Antibody Screen Negative Discharge Plan Discharge Attending physician on discharge: Elizabeth Piedra Discharging Clinician: Elizabeth Piedra Anticipated Discharge Date/Time: 06/24/23 11:00 Patient Disposition: Home, Self-Care Activity: may shower and pelvic rest Diet: regular Discharge Instructions: Education: Mom and Baby Guide Given to: Mother Follow-Up: Call your delivering provider's office for an appointment to be seen in: 4 Weeks [facility]. Appointment Date/Time: June 25, 2023 at 10:00 am What to expect at your follow-up visit: Blood Pressure Check & Physical Assessment Call [phone] if you are unable to keep your appointment time. BREAST CARE: * Wear a snug supportive bra. * For engorgement discomfort: Breast Feeding: * Apply warm moist washcloths * Express milk as needed to relieve engorgement * Wear loose clothing Bottle Feeding: * May apply ice packs * For sore nipples: * Identify correct latch-on * Apply warm moist washcloths before and after nursing * Air dry nipples after nursing * May apply Lansinoh cream to nipples EPISIOTOMY/PERINEAL CARE: * Until bleeding stops, use your deedee bottle after urinating * Change your pad frequently throughout the day * You may take sitz baths several times a day (fill your bathtub with warm water and soak for 20 minutes.) Do NOT bathe in the water * No tub baths until seen by your physician - You may shower ACTIVITY: * Rest as much as possible. * Do not exercise or lift anything heavier than your baby (such as laundry or other children.) * Avoid stairs or driving as much as possible. * Do not put anything into the vagina. No douching, tampons, or sexual activity until seen by physician. NOTIFY PHYSICIAN IF YOU HAVE ANY QUESTIONS OR IF ANY OF THE FOLLOWING SYMPTOMS OCCUR: * If your perineum becomes red, swollen, or more painful than what you have experienced in the hospital. * If your vaginal bleeding becomes foul smelling. * If your vaginal bleeding becomes more heavy than a period or if your bleeding changes from pink to b
[2023-06-23 07:45] VITALS: PULSE 87; RESP 20; O2SAT 99
[2023-06-23 07:47] VITALS: BP 121/68; PULSE 87; RESP 20; TEMP 36.8; O2SAT 99
[2023-06-23] MEDS: MULTIVIT/MIN/PREN/FOL AC/IRON TABLET 1 TAB PO (08:48)
[2023-06-23] MEDS: DOCUSATE SODIUM 100 MG CAPSULE PO (08:48)
[2023-06-23] MEDS: IBUPROFEN 600 MG TABLET PO ×2 (08:48→18:56)
--- NOTE | 2023-06-23 12:03 | WPDANLDPN2 ---
Anes-Prog Note L&D Date/Time: 06/23/23 12:03 Comfortable throughout: labor and delivery Neuraxial method: epidural Epidural/Spinal procedure site: clean & non-tender Neuro status: Neuro function grossly intact. Cardiovascular status: normal Respiratory status: normal Airway patency: baseline Mental status: baseline Post-Op hydration status: normal Vital Signs: Last Vital Signs Temp 36.8 C 06/23/23 07:47 Pulse 87 06/23/23 07:47 Resp 20 06/23/23 07:47 BP 121/68 06/23/23 07:47 Pulse Ox 99 06/23/23 07:47 O2 Del Method Room Air 06/22/23 13:36 Pain score (VAS): 07/03 I/O: Intake & Output 06/22/23 06/23/23 06/23/23 23:59 07:59 15:59 Intake Total 500 300 Output Total 1750 1550 Balance -1250 -1250 Post-procedural complaints: none Patient feedback: Patient satisfied with anesthetic care.
--- NOTE | 2023-06-23 16:44 | PC.NURSE ---
1335-RN encouraged mother to feed baby every 2-3 hours or on demand and to wake baby if he does not wake on his own for feedings; mother stated earlier that she may need to supplement baby; RN checked baby's blood sugar since baby was jittery; Blood sugar was WNL. RN stated to mother that she did not need to supplement based on baby's blood sugar, however, formula was given to mother if she decides she wants to.
[2023-06-23 18:45] VITALS: BP 130/91; PULSE 98; RESP 16; O2SAT 100
[2023-06-23] MEDS: DIBUCAINE 1% OINTMENT 30 GM TUBE 1 APPLIC TOPICAL (18:57)
[2023-06-23 23:57] VITALS: BP 118/84
[2023-06-24] MEDS: IBUPROFEN 600 MG TABLET PO (04:58)
[2023-06-24] MEDS: TETANUS,DIPHTHERIA,AC PERTUSSIS ADULT (0.5 ML) BOOSTRIX IM (05:55)
[2023-06-24 08:18] VITALS: BP 121/78; PULSE 90; RESP 16; TEMP 36.6; O2SAT 100
--- NOTE | 2023-06-24 08:18 | PC.NURSE ---
Patient to view the discharge video Mother & Baby Care, The First Two Weeks online. Patient was given the opportunity and encouraged to ask questions. Patient verbalized understanding of information shared and has been given the mother/baby guide for home reference.
[2023-06-24] MEDS: DOCUSATE SODIUM 100 MG CAPSULE PO (08:20)
[2023-06-24] MEDS: MULTIVIT/MIN/PREN/FOL AC/IRON TABLET 1 TAB PO (08:20)
--- NOTE | 2023-06-24 08:58 | PM.OBDSVD ---
DS: Admitting Diagnosis Discharge Date 06/24/23 Admitting Diagnosis Intrauterine at term DS: Discharge Diagnosis Discharge Diagnosis (1) Normal vaginal delivery: Code(s): O80 - Encounter for full-term uncomplicated delivery Status: Acute OB - DS: Summary OB Procedures : None OB Procedures Intrapartum: Spontaneous Vag Delivery OB Procedures: : None Peripartum Data Laceration Description: None Episiotomy description: None Status at Discharge Functional status at discharge: independent ambulation Overall status at discharge: patient is back to baseline Time Spent with Patient Time attestation: Total time spent providing and/or coordinating discharge services: Time spent: Less than 30 minutes Exam Const: General: comfortable and no acute distress Resp: Effort & Inspection: normal respiratory effort Auscultation: clear to auscultation bilaterally Cardio: Rate: regular rate GI: GI Palp: Yes Soft to palpation Auscultation: normal bowel sounds Other: Fundus firm below umbilicus Psych: Appearance: grossly normal Mental Status: mental status grossly normal Affect: normal affect Discharge Plan Discharge Attending physician on discharge: Elizabeth Piedra Discharging Clinician: Elizabeth Piedra Anticipated Discharge Date/Time: 06/24/23 11:00 Patient Disposition: Home, Self-Care Activity: may shower and pelvic rest Diet: regular Patient Instructions: Vaginal Delivery (DC) Stand Alone Forms: General Discharge Information Follow-up/Referrals: Elizabeth Piedra MD [Physician] - 4 Weeks Discharge Medications: New acetaminophen 325 mg Tablet 650 mg PO Q6H PRN (Reason: Mild Pain (1-3) Or Headache) Qty: 60 0RF docusate sodium 100 mg Capsule 100 mg PO BID PRN (Reason: Constipation) Qty: 100 0RF ibuprofen 600 mg Tablet 600 mg PO Q6H PRN (Reason: Cramping) Qty: 40 0RF acetaminophen 500 mg tablet 500 mg PO Q6H PRN (Reason: pain) Qty: 30 0RF ibuprofen 600 mg tablet 600 mg PO Q6H PRN (Reason: pain) Qty: 30 0RF Continued famotidine 40 mg tablet 40 mg PO DAILY ferrous sulfate 325 mg (65 mg iron) tablet 325 mg PO DAILY ondansetron 4 mg tablet,disintegrating 4 mg PO Q8H PRN (Reason: nausea and vomiting) Qty: 14 4RF Date of admission: 06/22/23 05:48 Primary Care Provider: PHYSICIAN,COORDINATOR OF ONLINE PROGRAMS Admitting Provider: Amado Osorio Attending physician on admission: Amado Osorio Condition: Stable
[2023-06-24 13:03] LABS: Rapid Plasma Reagin Non-Reactive (NonReactive)
[2023-06-25 10:26] VITALS: BP 128/87; PULSE 86; RESP 18; TEMP 37.1; O2SAT 100
== END 2023-06-24 11:40 | disposition home or self-care (01) | DRG 560 ==
LOC: ANHLDR 06:26 → ANHOB2 13:46
PROVIDERS: Admitting Provider Obstetrics & Gynecology; Visit Provider Student in an Organized Health Care Education/Training Program
DX: O77.0 Labor and delivery complicated by meconium in amniotic fluid (principal); O99.214 Obesity complicating childbirth; O99.02 Anemia complicating childbirth; D64.9 Anemia, unspecified; O99.344 Other mental disorders complicating childbirth; F32.A Depression, unspecified; O99.62 Diseases of the digestive system complicating childbirth; K21.9 Gastro-esophageal reflux disease without esophagitis; R33.9 Retention of urine, unspecified; Z3A.41 41 weeks gestation of pregnancy; Z23 Encounter for immunization; Z37.0 Single live birth
CPT/HCPCS: 36415; 85014; 85018; 85025; 86592; 86850; 86900; 86901; 90471; 90686; 90715; A9270; G0008; J2590; J2795; J7120

== ENCOUNTER 2023-10-31 11:31 | Emergency (ER) | payer OTHER, SELFPAY ==
[2023-10-31 11:38] VITALS: BP 121/81; PULSE 86; RESP 16; TEMP 37.2; O2SAT 99
--- NOTE | 2023-10-31 11:39 | ED.EAR ---
HPI - Ear Problem General Chief complaint: Ear Stated complaint: Right Ear/Left Eye Irritation Time Seen by Provider: 10/31/23 11:40 Source: patient Mode of arrival: ambulatory Limitations: no limitations History of Present Illness HPI Narrative: Kasey is a 28-year-old female patient presenting to the clinic today with complaints of right ear pain that started the past few days. She reports she is having a lot of tenderness to palpation over her ear. Is concerned that it may be infected. Also concerned about some left eye irritation that started this morning. Denies any pain to the eyelid currently. States that she put an ice cube over her eyelid and it made it feel better but is wanting her eyelid looked at as well. History of otitis media and ear abscess Related Data Allergies Allergy/AdvReac Type Severity Reaction Status Date / Time albuterol Allergy Mild Rash Verified 10/31/23 11:33 Review of Systems Review of Systems: Pertinent positives per HPI. Patient denies any fever, chills, rash, headache, visual changes, dizziness, cough, runny nose, sore throat, shortness of breath, chest pain, palpitations, nausea, vomiting, diarrhea, constipation, abdominal pain, or any urinary issues. [facility] Past Medical History Medical History Acute suppurative otitis media of right ear with spontaneous rupture of tympanic membrane Crepitus of joint of left knee Depression with anxiety Encounter for screening examination for infectious disease Generalized anxiety disorder GERD (gastroesophageal reflux disease) Hearing loss, right Irregular menses Major depressive disorder, single episode, unspecified Nummular eczema Self-cutting of wrist Suppression of menstruation Surgical History Surgical History History of myringotomy Hx of tonsillectomy Family History Family History Mother Acute myocardial infarction Grandparent Breast cancer in female Social History Social History Smoking status: Never smoker Second hand tobacco smoke exposure: Yes Alcohol intake: never Substance use: former Substance use type: marijuana Last use: 10/22/2022 Do You Feel Safe in your Home?: Yes Lack of Transportation: No Lack of Food: Never True Current Housing: I Have Housing Concerned About Future Housing: No Difficulty Paying Gas/Electric Bills: No Difficulty Paying for Meds: No Currently Unemployed: No Education: Trade/Vocational Certificate Difficulty w/ Childcare or Family Care: No Living arrangements: with family Additional living arrangements comments: partner and parents Occupation/Education: other Additional occupation/education comments: stay at home mother Gender identity (if verbalized by the patient): Female Sexual Orientation (if Verbalized by the Patient): Straight or Heterosexual Spiritual care concerns: No Comments At the time of my signature, I reviewed and agree with the nursing past medical, surgical, social, and family history. There is no relevant family history pertinent to the patient complaint. Exam Narrative: General: Well-developed, well nourished, in no apparent distress Head: Normocephalic, atraumatic Eyes: Pupils equally round and reactive to light bilaterally, EOM intact, sclera and conjunctive clear, no discharge, lids normal Ears: TMs intact and clear, left ear canals clear, right ear canal abscess noted without pustule head, area very tender to palpation, mild fluctuant, no postaurical or postaurical lymphadenopathy, no drainage, grossly hearing normal. Nose: Nares patent, no discharge, no inflammation, no sinus tenderness. Mouth: Oropharynx without lesions or masses, good dentition, MMM. Neck: Supple, trachea midline, no enlar
== END 2023-10-31 12:03 | disposition home or self-care (01) ==
PROVIDERS: Emergency Provider Nurse Practitioner Family
DX: H60.01 Abscess of right external ear (principal); H02.9 Unspecified disorder of eyelid; K21.9 Gastro-esophageal reflux disease without esophagitis
CPT/HCPCS: 10060; 87070; 87147; 87181; 87205; 99213; G0463

== ENCOUNTER 2024-02-04 13:45 | Outpatient (CLI) | payer OTHER, SELFPAY ==
[2024-02-04 14:55] LABS: Hematocrit 44.8 % (37.0-47.0); Hemoglobin 14.3 g/dL (12.0-15.0)
== END 2024-02-04 13:46 | disposition home or self-care (01) ==
LOC: ANHLAB 13:46
PROVIDERS: PCP Student in an Organized Health Care Education/Training Program; Visit Provider Student in an Organized Health Care Education/Training Program
DX: R53.83 Other fatigue (principal)
CPT/HCPCS: 36415; 84443; 85014; 85018

== ENCOUNTER 2024-02-05 13:11 | Emergency (ER) | payer OTHER, SELFPAY ==
[2024-02-05] VITALS (8 sets, daily range): BP systolic 114–172; BP diastolic 71–93; PULSE 81–95; RESP 12–18; TEMP 36.7; O2SAT 98–100
--- NOTE | ~2024-02-05 | XR_ITS ---
EXAMINATION: XR chest 2V DATE: 02/05/2024 14:11 INDICATION: Chest pain. TECHNIQUE: Frontal and lateral views of the chest were obtained. COMPARISON: Chest CT 12/20/2016 FINDINGS: There is no pneumonia, pleural effusion, or pneumothorax. The heart size is normal. Pectus excavatum is noted. IMPRESSION: 1. No acute cardiopulmonary disease. Reviewed, dictated and finalized at location A.
--- NOTE | 2024-02-05 13:14 | ECG_ITS ---
Test Date: 2024-02-05 13:17:36 Measurements Intervals Elbert Rate: 86 P: 1 OR: 140 QRS: 64 QRSD: 93 T: 39 QT: 340 QTc: 408 Interpretive Statements SINUS RHYTHM No previous ECG available for comparison Electronically Signed On 02-06-2024 09:48:17 CDT by Yi Martinez M.D.
[2024-02-05 13:31] LABS: Basophils Percent Auto 0.4 % (0.2-1.2); Eosinophils Absolute Auto 0.5 K/mm3 (0-0.3); Eosinophils Percent Auto 5.7 % (0-4.4); Hematocrit 42.7 % (37.0-47.0); Hemoglobin 13.9 g/dL (12.0-15.0); Immature Granulocyte Absolute 0.02 K/mm3 (0.00-0.031); Immature Granulocyte Percent A 0.3 % (0-0.5); Lymphocytes Absolute Auto 3.22 K/mm3 (0.9-3.2); Lymphocytes Percent Auto 40.8 % (18.3-44.2); Mean Corpuscular HGB Conc 32.6 g/dl (32-36); Mean Corpuscular Hemoglobin 28.8 pg (26-34); Mean Corpuscular Volume 88.6 fl (80-100); Mean Platelet Volume 9.9 fl (7.4-10.4); Monocytes Absolute Auto 0.5 K/mm3 (0.1-0.6); Monocytes Percent Auto 5.8 % (2.6-8.5); Neutrophils Absolute Auto 3.7 K/mm3 (1.3-6.7); Platelet Count Result 215 k/mm3 (150-375); Red Blood Count 4.82 M/mm3 (4.2-5.4); White Blood Count 7.9 K/mm3 (4.5-10.0)
--- NOTE | 2024-02-05 13:31 | ED.CHESTPAIN ---
HPI - Chest Pain General Chief Complaint: Chest Pain <Kamari Meza PA-C - Last Filed: 02/05/24 13:34> Stated Complaint: left side chest pain <EARL Linton Last Filed: 02/05/24 13:34> Time Seen by Provider: 02/05/24 13:22 <Kamari Meza PA-C - Last Filed: 02/05/24 13:34> Source: patient <EARL Linton Last Filed: 02/05/24 13:34> Mode of arrival: ambulatory <EARL Linton Last Filed: 02/05/24 13:34> Limitations: no limitations <EARL Linton Last Filed: 02/05/24 13:34> History of Present Illness HPI narrative: this is a 28-year-old female who presents to the ED for chief complaint of palpitations x2 hours. Patient reports some left-sided chest pain /discomfort that does not radiate. Denies syncope, nausea, vomiting. States that her mother and grandmother have heart issues so she wanted to be checked out. Reports that it feels like the heartbeat is skipping a beat every once in a while. Denies recent illness, fevers, chills, shortness of breath, cough, back pain, numbness, weakness. <Kamari Meza PA-C Last Filed: 02/05/24 13:34> Related Data Allergies/Adverse Reactions: Allergies Allergy/AdvReac Type Severity Reaction Status Date / Time albuterol Allergy Mild Rash Verified 02/05/24 13:20 <EARL Linton Last Filed: 02/05/24 13:34> Review of Systems Review of Systems: All systems as dictated in HPI <EARL Linton Last Filed: 02/05/24 13:34> PMFSH Past Medical History Medical History: Medical History Acute suppurative otitis media of right ear with spontaneous rupture of tympanic membrane Crepitus of joint of left knee Depression with anxiety Encounter for screening examination for infectious disease Generalized anxiety disorder GERD (gastroesophageal reflux disease) Hearing loss, right Irregular menses Major depressive disorder, single episode, unspecified Nummular eczema Self-cutting of wrist Suppression of menstruation <Kamari Meza PA-C - Last Filed: 02/05/24 13:34> Surgical History Surgical History: Surgical History History of myringotomy Hx of tonsillectomy <Kamari Meza PA-C - Last Filed: 02/05/24 13:34> Family History Family History: Family History Mother Acute myocardial infarction Grandparent Breast cancer in female <Kamari Meza PA-C - Last Filed: 02/05/24 13:34> Social History Social History: Social History Smoking status: Never smoker Second hand tobacco smoke exposure: Yes Alcohol intake: never Substance use: former Substance use type: marijuana Last use: 10/22/2022 Do You Feel Safe in your Home?: Yes Lack of Transportation: No Lack of Food: Never True Current Housing: I Have Housing Concerned About Future Housing: No Difficulty Paying Gas/Electric Bills: No Difficulty Paying for Meds: No Currently Unemployed: No Education: Trade/Vocational Certificate Difficulty w/ Childcare or Family Care: No Living arrangements: with family Additional living arrangements comments: partner and parents Occupation/Education: other Additional occupation/education comments: stay at home mother Gender identity (if verbalized by the patient): Female Sexual Orientation (if Verbalized by the Patient): Straight or Heterosexual Spiritual care concerns: No <Kamari Meza PA-C - Last Filed: 02/05/24 13:34> Exam Narrative: GENERAL: Well-appearing, well-nourished, and in no acute distress. HEAD: Normocephalic, atraumatic. EYES: PERRLA and EOMI. ENT: Nares clear, no rhinorrhea or epistaxis. Mucous membranes moist. Oropharynx without tonsillar hypertrophy exudate or other lesions. NECK: Supple. No adenopathy or
[2024-02-05 13:50] LABS: Alanine Aminotransferase 29 U/L (6-35); Albumin Level 4.1 g/dL (3.5-5.1); Alkaline Phosphatase 50 U/L (38-126); Anion Gap 9 mmol/L (4-12); Aspartate Amino Transferase 32 U/L (14-36); Bilirubin,Total 0.4 mg/dL (0.2-1.3); Blood Urea Nitrogen 19 mg/dL (7-17); Calcium 8.9 mg/dL (8.4-10.2); Carbon Dioxide 27 mmol/L (22-30); Chloride 103 mmol/L (98-107); Estimated CRCL calculation 154 ml/min; Estimated Glomerular Filt Rate > 60; Glucose 100 mg/dL (65-110); Lipase 67 U/L (23-300); Sodium 139 mmol/L (137-145)
[2024-02-05 13:54] LABS: INR 0.9; Prothrombin Time 12.6 Seconds (11.1-14.7)
[2024-02-05 13:56] LABS: Partial Thromboplastin Time 27.3 Seconds (22.3-36.8)
[2024-02-05 14:01] LABS: Troponin I < 0.012 ng/mL (0.000-0.034)
[2024-02-05 15:33] LABS: Magnesium 1.8 mg/dL (1.6-2.3)
--- NOTE | 2024-02-05 16:06 | ECG_ITS ---
Test Date: 2024-02-05 16:11:33 Measurements Intervals [place] Rate: 82 P: 7 [place]: 159 QRS: 57 QRSD: 87 T: 34 QT: 341 QTc: 400 Interpretive Statements SINUS RHYTHM Compared to ECG 02/05/2024 13:17:36 No significant changes Electronically Signed On 02-06-2024 09:51:33 CDT by Yi Martinez M.D.
[2024-02-05 16:52] LABS: Troponin I < 0.012 ng/mL (0.000-0.034)
== END 2024-02-05 17:34 | disposition home or self-care (01) ==
PROVIDERS: Emergency Medicine; Emergency Provider Nurse Practitioner Family
DX: R00.2 Palpitations (principal); R07.89 Other chest pain; K21.9 Gastro-esophageal reflux disease without esophagitis; Z77.22 Contact with and (suspected) exposure to environmental tobacco smoke (acute) (chronic)
CPT/HCPCS: 36415; 71046; 80053; 83690; 83735; 84484; 85025; 85610; 85730; 93005; 99284

== ENCOUNTER 2024-03-30 15:30 | Outpatient (CLI) | payer OTHER, SELFPAY ==
[2024-03-30 16:36] LABS: Cholesterol 185 mg/dL (0-200); HDL Direct 36 mg/dL; Hemoglobin A1C 5.1 % (<5.7); Triglycerides 191 mg/dL (<150)
[2024-03-30 16:47] LABS: LDL Cholesterol Direct 120 mg/dL
== END 2024-03-30 15:31 | disposition home or self-care (01) ==
LOC: ANHLAB 15:32
PROVIDERS: Visit Provider Nurse Practitioner Family
DX: F32.A Depression, unspecified (principal); F41.9 Anxiety disorder, unspecified; Z00.00 Encounter for general adult medical examination without abnormal findings; Z13.220 Encounter for screening for lipoid disorders; Z68.35 Body mass index [BMI] 35.0-35.9, adult; Z76.89 Persons encountering health services in other specified circumstances; Z13.1 Encounter for screening for diabetes mellitus
CPT/HCPCS: 36415; 80061; 83036